=== PATIENT | female | born 1990 | race American Indian/Alaskan Native ===

== ENCOUNTER 2022-05-29 10:35 | Inpatient (IN) | payer MEDICAID ==
[2022-05-29] MEDS ORDERED: LACTATED RINGERS 1,000 ML ONE ×2 (11:32→12:35)
[2022-05-29] MEDS ORDERED: LACTATED RINGERS 1,000 ML IV SCH (12:30)
[2022-05-29 12:47] LABS: Hematocrit 33.9 % (30.3-42.9); Mean Corpuscular HGB Conc 33 % (30-34); Mean Corpuscular Volume 88 fl (79-97); Platelet Count 296 K/mm3 (140-440); Red Blood Count 3.84 M/mm3 (3.65-5.03); Red Cell Distribution Width 13.8 % (13.2-15.2)
[2022-05-29] MEDS ORDERED: TERBUTALINE 1 MG/1 ML INJ SUB-Q NR (13:00)
[2022-05-29] MEDS ORDERED: fentaNYL 100 MCG/2 ML INJ IV NR (13:00)
[2022-05-29] MEDS ORDERED: ONDANSETRON 4 MG/2 ML INJ IV PRN (13:00)
[2022-05-29] MEDS ORDERED: NALOXONE 0.4 MG/1 ML INJ IV PRN (13:00)
[2022-05-29] MEDS ORDERED: CARBOPROST TROMETHAMINE 250 MCG/1 ML INJ IM NR (13:00)
[2022-05-29] MEDS ORDERED: METHYLERGONOVINE MALEATE 0.2 MG/ML VIAL IM NR (13:00)
[2022-05-29] MEDS ORDERED: OXYTOCIN 10 UNIT/1 ML INJ IM NR (13:00)
[2022-05-29] MEDS ORDERED: miSOPROStol 200 MCG TAB PR NR (13:00)
[2022-05-29] MEDS ORDERED: LIDOCAINE (2%) 20 MG/1 ML VIAL 20 ML MDV INFILTRATI NR (13:00)
[2022-05-29] MEDS ORDERED: ePHEDrine SULFATE 50 MG/1 ML INJ IV PRN (13:00)
[2022-05-29] MEDS ORDERED: LOPERAMIDE 2 MG CAP PO NR (13:00)
[2022-05-29] MEDS ORDERED: OXYTOCIN DRIP 30 UNITS/500 ML BAG IV SCH (13:00)
[2022-05-29] MEDS ORDERED: BUTORPHANOL 2 MG/1 ML INJ IV PRN (13:00)
[2022-05-29] MEDS ORDERED: LANOLIN/ZINC/DIMETHICONE (LANSINOH) 7 GM TP PRN (13:06)
[2022-05-29] MEDS ORDERED: WITCH HAZEL/ GLYCERIN PAD TP PRN (13:06)
[2022-05-29] MEDS ORDERED: diphenhydrAMINE 25 MG CAP PO PRN (13:06)
[2022-05-29] MEDS ORDERED: PROMETHAZINE 25 MG TAB PO PRN (13:06)
[2022-05-29] MEDS ORDERED: BENZOCAINE/MENTHOL 20/0.5% TOP SPRAY 56 GM TP PRN (13:06)
[2022-05-29] MEDS ORDERED: MAGNESIUM HYDROXIDE (MOM) ORAL LIQD UDC PO PRN (13:06)
[2022-05-29] MEDS ORDERED: HYDROcodone/ACETAMINOPHEN 5-325 MG TAB PO PRN (13:06)
--- NOTE | 2022-05-29 13:13 | History and Physical Report ---
History of Present Illness Date of examination: 05/29/22 Date of admission: 05/29/2022 Chief complaint: Labor Pains History of present illness: Early entry to care at [facility]; 1st trimester complicated with +Trchomonas (treated with Metronidazole). Past History Past Medical History: no pertinent history Past Surgical History: section [employer] History: trichomonas Family/Genetic History: none Social history: no significant social history, single - Obstetrical History Expected Date of Delivery: 05/26/22 Actual Gestation: 40 Week(s) 3 Day(s) : 3 Para: 2 Hx # Term Pregnancies: 2 Number of Living Children: 2 #1 Infant Gender: Female year: , Birthweight: 3.402 kg Method of Delivery: Gestational age at delivery: 40 #2 Infant Gender: Female year: 010 Birthweight: 3.374 kg Method of Delivery: Gestational age at delivery: 41 Complications: none Medications and Allergies Allergies Allergy/AdvReac Type Severity Reaction Status Date / Time No Known Allergies Allergy Verified 05/29/22 10:57 Active Meds: Active Medications Butorphanol Tartrate (Butorphanol 2 Mg/1 Ml Inj) 2 mg IV Q2H PRN PRN Reason: Pain , Severe (7-10) Carboprost Tromethamine (Carboprost Tromethamine 250 Mcg/1 Ml Inj) 250 mcg IM ONCE NR Stop: 05/29/22 20:00 Ephedrine Sulfate (Ephedrine Sulfate 50 Mg/1 Ml Inj) 10 mg IV Q2M PRN PRN Reason: Hypotension Fentanyl (Fentanyl 100 Mcg/2 Ml Inj) 100 mcg IV ONCE NR Stop: 05/29/22 20:00 Lactated Ringer's (Lactated Ringers) 1,000 mls @ 125 mls/hr IV DIRECT PEDRO Oxytocin/Sodium Chloride (Pitocin/Ns 30 Unit/500ml) 30 units in 500 mls @ 40 mls/hr IV TITR PEDRO; Protocol Lidocaine (Lidocaine (2%) 20 Mg/1 Ml Vial 20 Ml Mdv) 20 ml INFILTRATI ONCE NR Stop: 05/29/22 20:00 Loperamide HCl (Loperamide 2 Mg Cap) 2 mg PO ONCE NR Stop: 05/29/22 20:00 Methylergonovine Maleate (Methylergonovine Maleate 0.2 Mg/Ml Vial) 0.2 mg IM ONCE NR Stop: 05/29/22 20:00 Mineral Oil (Mineral Oil 30 Ml Oral Liqd) 30 ml PO QHS PRN PRN Reason: Constipation Misoprostol (Misoprostol 200 Mcg Tab) 800 mcg DC ONCE NR Stop: 05/29/22 20:00 Naloxone HCl (Naloxone 0.4 Mg/1 Ml Inj) 0.1 mg IV Q2MIN PRN PRN Reason: Res Rate </= 8 or 02 SAT < 92% Ondansetron HCl (Ondansetron 4 Mg/2 Ml Inj) 4 mg IV Q8H PRN PRN Reason: Nausea And Vomiting Oxytocin (Oxytocin 10 Unit/1 Ml Inj) 10 unit IM ONCE NR Stop: 05/29/22 20:00 Terbutaline Sulfate (Terbutaline 1 Mg/1 Ml Inj) 0.25 mg SUB-Q ONCE NR Stop: 05/29/22 20:00 Review of Systems All systems: negative - Vital Signs Vital signs: Vital Signs Pulse BP Pulse Ox 85 119/70 99 05/29/22 10:55 05/29/22 10:55 05/29/22 10:55 Temp Pulse Resp BP Pulse Ox 98.6 F 88 20 129/69 100 05/29/22 10:58 05/29/22 13:03 05/29/22 10:58 05/29/22 12:59 05/29/22 13:03 - Physical Exam Breasts: Positive: normal Cardiovascular: Regular rate Lungs: Positive: Clear to auscultation, Normal air movement Abdomen: Positive: normal appearance, soft, normal bowel sounds Genitourinary (Female): Positive: normal external genitalia, normal perenium Vagina: Positive: normal moisture Uterus: Positive: enlarged Anus/Rectum: Positive: normal perianal skin - Obstetrical FHR: category 2 Uterine Contraction Monitor Mode: External Cervical Dilatation: 7 (Large amount of thin meconium stained fluids upon AROM [id number]) Cervical Effacement Percentage: 90 station: -2 Uterine Contraction Pattern: Regular Uterine Tone Measurement Phase: Resting Uterine Contraction Intensity: Strong/Firm Results Result Diagrams: 05/29/22 12:00 Abnormal lab results 05/29/22 Range/Units 12:00 WBC 16.7 H (4.5-11.0) K/mm3 All other labs normal. Assessment and Plan A: IUP @ 40 3/7 Weeks Category II Tracing Previous Previous Active Labor Maternal Obesity Meconium Stained Fluids GBS Negative P: Admit to L&D Per Routine Orders AROM IUPC Anticipate Notify NICU of Meconium Stained Fluids
--- NOTE | 2022-05-29 13:26 | Procedure Note ---
OB Delivery Note - Delivery Date of Delivery: 05/29/22 (1237) Surgeon: LIZZETTE DAMICO Estimated blood loss: 200cc - Vaginal Delivery presentation: vertex Delivery position: OA Intrapartum events: meconium, precipitous labor- <3hr, mult.variable deceleratio Delivery induction: none Delivery augmentation: rupture of membranes Delivery monitor: external uterine, internal FHT Route of delivery: Delivery placenta: spontaneous Delivery cord: 3 umbilical vessels Episiotomy: none Delivery laceration: none Anesthesia: none Delivery comments: Precipitous of a live 7'7 female infant over a intact perineum without pain control with Apgars of 8 and 9 at 1237 on 05/29/2022. Infant directly to maternal abd/chest, skin to skin contact. Spontaneous delivery of placenta complete and intact with Lopes side presenting at 1245. Fundus is firm and midline located 4 below the U; Lochia is scant. Delayed cord clamping and cutt ing; Cord cut by the Father of the Baby. Cord blood collected. Placenta is to go home with family per their request. - Infant A at 1 minute: 8 at 5 minutes: 9 Gender: Female (7'7)
[2022-05-29] MEDS: IBUPROFEN 800 MG TAB PO SCH (20:30)
[2022-05-29] MEDS ORDERED: MINERAL OIL 30 ML ORAL LIQD PO PRN (22:00)
[2022-05-30] MEDS: IBUPROFEN 800 MG TAB PO SCH (01:00)
[2022-05-30 01:02] LABS: Hematocrit 31.7 % (30.3-42.9); Hemoglobin 10.4 gm/dl (10.1-14.3)
--- NOTE | 2022-05-30 08:40 | Progress Note ---
Assessment and Plan A: PPD # 1 - stable P: Plan discharge home in am Discharge instructions given Subjective - Subjective Date of service: 05/30/22 Principal diagnosis: - PPD #1 Patient reports: appetite normal [place]: doing well Objective - Vital Signs Latest vital signs: Vital Signs Temp Pulse Resp BP BP Pulse Ox Pulse Ox 05/30/22 00:31 98.1 F 86 20 101/61 99 05/29/22 20:40 99 05/29/22 16:17 98.5 F 67 16 112/51 98 05/29/22 15:14 81 100 05/29/22 15:09 73 100 05/29/22 15:03 76 127/73 05/29/22 14:58 78 99 05/29/22 14:53 85 100 05/29/22 14:48 72 120/96 100 05/29/22 14:43 78 99 05/29/22 14:38 83 98 05/29/22 14:33 83 100 05/29/22 14:30 69 120/59 05/29/22 14:29 88 05/29/22 14:28 81 97 05/29/22 13:43 87 98 05/29/22 13:41 87 92 05/29/22 13:38 87 100 05/29/22 13:33 86 96 05/29/22 13:32 91 H 94 05/29/22 13:28 87 96 05/29/22 13:27 88 85 05/29/22 13:23 87 100 05/29/22 13:18 84 100 05/29/22 13:13 77 100 05/29/22 13:08 78 100 05/29/22 13:03 88 100 05/29/22 12:59 78 129/69 05/29/22 12:58 93 05/29/22 12:30 99 05/29/22 12:07 87 99 05/29/22 12:02 84 100 05/29/22 11:57 94 H 100 05/29/22 11:52 73 100 05/29/22 11:47 123 H 100 05/29/22 11:42 121 H 100 05/29/22 11:37 107 H 99 05/29/22 11:32 73 100 05/29/22 11:27 117 H 99 05/29/22 11:22 79 100 05/29/22 11:17 88 100 05/29/22 11:10 76 100 05/29/22 11:05 94 H 100 05/29/22 11:00 84 98 05/29/22 10:58 98.6 F 85 20 119/70 100 05/29/22 10:55 79 119/70 99 Intake and Output 05/29/22 05/30/22 05/30/22 22:59 06:59 14:59 Intake Total 240 120 Output Total 350 Balance -110 120 Intake: Oral 240 120 Output: Urine 350 Void 350 Other: Total, Intake Amount 240 120 Total, Output Amount 350 # Voids Void 1 1 - Exam Breasts: Present: deferred Cardiovascular: Present: Regular rate Lungs: Present: Clear to auscultation Abdomen: Present: soft Vulva: both: normal Uterus: Present: fundal height below umbilicus Deep Tendon Reflex Grade: Normal +2 Incision: Present: intact - Labs Labs: Abnormal lab results 05/29/22 Range/Units 12:00 WBC 16.7 H (4.5-11.0) K/mm3
--- NOTE | 2022-05-30 08:51 | Discharge Summary ---
Providers - Providers Date of Admission: 05/29/22 13:07 Date of discharge: 05/31/22 Attending physician: RADHA ANDREA MD Primary care physician: RADHA ANDREA MD Hospitalization Reason for admission: active labor Delivery: Laceration: none Other procedures: none complications: none baby: female Condition at discharge: Good Disposition: 01 HOME / SELF CARE / HOMELESS Plan - Provider Discharge Summary Activity: routine, no sex for 6 weeks, no strenuous exercise Diet: routine Instructions: routine Additional instructions: [] Smoking cessation referral if applicable(refer to patient education folder for contact #) [] Refer to [facility]'s [facility] Booklet Call your doctor immediately for: * Fever > 100.5 * Heavy vaginal bleeding ( >1 pad per hour) * Severe persistent headache * Shortness of breath * Reddened, hot, painful area to leg or breast * Drainage or odor from incision. * Keep incision clean and dry at all times and follow doctor's instructions regarding bathing/showering - Follow up plan Follow up: RADHA ANDREA MD [Primary Care Provider] - 6 Weeks
[2022-05-31 09:44] VITALS: BP 113/59
== END 2022-05-31 13:25 | disposition home or self-care (01) | DRG 775 ==
LOC: TRG 10:35 → APU 10:38 → LD 12:14 → TRG 13:59 → OB 16:09
PROVIDERS: ADMIT Obstetrics & Gynecology Gynecology; ATTEND Obstetrics & Gynecology Gynecology
PROC: 10E0XZZ Delivery of Products of Conception, External Approach (ICD-10-PCS; principal; 2022-05-29)
DX: O76 Abnormality in fetal heart rate and rhythm complicating labor and delivery (principal); Z37.0 Single live birth; Z20.822 Contact with and (suspected) exposure to COVID-19; O34.211 Maternal care for low transverse scar from previous cesarean delivery; O48.0 Post-term pregnancy; Z3A.40 40 weeks gestation of pregnancy; O99.214 Obesity complicating childbirth; O77.0 Labor and delivery complicated by meconium in amniotic fluid; O62.3 Precipitate labor
CPT/HCPCS: 36415; 85014; 85018; 85027; 86850; 86900; 86901; G0378; U0003